=== PATIENT | female | born 1985 | race Two or more races ===

== ENCOUNTER 2018-10-31 15:25 | Emergency (ER) | payer SELFPAY ==
[~2018-10-31] VITALS: Ht 154.9 cm; Wt 74.4 kg
[2018-10-31 15:33] VITALS: BP 141/72
== END 2018-10-31 17:24 | disposition left against medical advice (07) ==
LOC: ER 15:25
DX: R50.9 Fever, unspecified (principal); R05 Cough; Z53.21 Procedure and treatment not carried out due to patient leaving prior to being seen by health care provider

== ENCOUNTER 2019-05-11 17:28 | Emergency (ER) | payer MEDICAID ==
[~2019-05-11] VITALS: Ht 154.9 cm; Wt 78.9 kg
[2019-05-12 01:04] VITALS: BP 132/78
[2019-05-12] MEDS ORDERED: ACETAMINOPHEN/CODEINE#3 (300/30mg) TAB PO ONE (02:00)
== END 2019-05-12 02:15 | disposition home or self-care (01) ==
LOC: ER 17:28
DX: K08.89 Other specified disorders of teeth and supporting structures (principal); E11.9 Type 2 diabetes mellitus without complications; Z76.0 Encounter for issue of repeat prescription; Z90.49 Acquired absence of other specified parts of digestive tract
CPT/HCPCS: 82962

== ENCOUNTER 2019-06-14 | Emergency (ER) | payer MEDICAID ==
[~2019-06-14] VITALS: Ht 154.9 cm; Wt 79.4 kg
[2019-06-14 00:20] VITALS: BP 139/88
[2019-06-14 01:23] LABS: Basophils # (auto) 0.1 uL; Basophils % (auto) 0.8 % (0.0-2.0); Eosinophils # (auto) 0.1 uL; Eosinophils % (auto) 1.2 % (0.0-7.0); Hemoglobin 14.2 g/dL (12.2-16.2); Lymphocytes # (auto) 4.4 uL; Lymphocytes % (auto) 34.5 % (10.0-50.0); Mean Corpuscular Hemoglobin 29.4 pg (28.0-32.0); Mean Corpuscular Hgb Conc. 33.7 g/dL (32.0-36.0); Mean Corpuscular Volume 87.4 fL (80.0-100.0); Monocytes # (auto) 0.7 uL; Monocytes % (auto) 5.7 % (0.0-12.0); Neutrophils # (auto) 7.3 uL; Neutrophils % (auto) 57.8 % (37.0-80.0); Nucleated Red Blood Cells % 0.1 %; Platelet Count (auto) 316 10^3/uL (140-450); Red Blood Cells 4.81 10^6/uL (4.0-5.20); Red Cell Distribution Width 12.7 % (11.8-14.3); White Blood Cell 12.6 10^3/uL (4.4-10.8)
[2019-06-14 01:40] LABS: Albumin 3.2 g/dL (3.4-5.0); BUN/Creatinine Ratio 15.6; Calcium 8.8 mg/dL (8.5-10.1); Potassium 3.9 mmol/L (3.5-5.1)
[2019-06-14 01:43] LABS: Bilirubin, Total 0.2 mg/dL (0.2-1.0)
== END 2019-06-14 04:00 | disposition left against medical advice (07) ==
LOC: ER 00:06
DX: R10.13 Epigastric pain (principal); Z53.21 Procedure and treatment not carried out due to patient leaving prior to being seen by health care provider
CPT/HCPCS: 36415; 80053; 82010; 82150; 83690; 84484; 85025; 93005

== ENCOUNTER 2019-11-26 22:39 | Emergency (ER) | payer MEDICAID ==
[~2019-11-26] VITALS: Ht 154.9 cm; Wt 69.9 kg
[2019-11-27 00:57] VITALS: BP 121/78
== END 2019-11-27 02:47 | disposition home or self-care (01) ==
LOC: ER 22:42
DX: J04.0 Acute laryngitis (principal); J00 Acute nasopharyngitis [common cold]; H65.93 Unspecified nonsuppurative otitis media, bilateral; E11.9 Type 2 diabetes mellitus without complications; Z90.49 Acquired absence of other specified parts of digestive tract

== ENCOUNTER → 2019-11-26 | Emergency (ER) | payer MEDICAID ==
[~2019-11-26] VITALS: Ht 154.9 cm; Wt 78.9 kg
[2019-11-26 01:22] VITALS: BP 123/84
== END | disposition left against medical advice (07) ==
LOC: ER 00:10
DX: R05 Cough (principal); J02.9 Acute pharyngitis, unspecified; Z53.21 Procedure and treatment not carried out due to patient leaving prior to being seen by health care provider
CPT/HCPCS: 82962